=== PATIENT | female | born 1960 | race Caucasian/White ===

== ENCOUNTER → 2020-03-05 13:45 | Outpatient (BNVA) | payer OTHER, SELFPAY | PROVIDERS: Visit Provider Obstetrics & Gynecology | DX: D25.9 Leiomyoma of uterus, unspecified (principal) | CPT/HCPCS: 76830 ==

== ENCOUNTER 2020-03-29 10:48 | Outpatient (CLI) | payer OTHER, SELFPAY ==
--- NOTE | 2020-03-29 11:00 | MM_ITS ---
WS: [id number] BILATERAL DIGITAL SCREENING MAMMOGRAPHY WITH CAD CLINICAL INFORMATION: Z12.39 - Encounter for other screening for malignant neoplasm of breast HISTORY: Screening mammogram. No current complaints. COMPARISON: February 02, 2019 TECHNIQUE: Bilateral CC and MLO views. FINDINGS: Scattered fibroglandular densities bilaterally. 5 mm ovoid asymmetric density mid depth right breast best seen on the MLO view. Recommend spot compression views and ultrasound for further evaluation. Left breast is unremarkable. MM/[place] [id number] IMPRESSION: BI-RADS: 0-Incomplete: Need additional imaging evaluation FOLLOW UP: Need Additional Imaging Recommend right breast diagnostic mammography with spot compression views and u ltrasound for further evaluation.
== END 2020-03-29 10:49 | disposition home or self-care (01) ==
LOC: RADSHAW 10:50
PROVIDERS: Visit Provider Obstetrics & Gynecology
DX: Z12.31 Encounter for screening mammogram for malignant neoplasm of breast (principal); N64.89 Other specified disorders of breast
CPT/HCPCS: 77067

== ENCOUNTER → 2020-04-27 15:06 | Outpatient (BNVA) | payer OTHER, SELFPAY | PROVIDERS: Visit Provider Obstetrics & Gynecology | DX: D25.9 Leiomyoma of uterus, unspecified (principal) | CPT/HCPCS: 76830 ==

== ENCOUNTER 2020-05-07 11:24 | Outpatient (CLI) | payer OTHER, SELFPAY ==
--- NOTE | 2020-05-07 12:00 | MM_ITS ---
WS: [id number] RIGHT DIGITAL MAMMOGRAPHY WITH CAD CLINICAL INFORMATION: R92.8 - Other abnormal and inconclusive findings on diagnostic imaging of breas t COMPARISON: March 29, 2020 TECHNIQUE: 2 views of the right breast were obtained. FINDINGS: Scattered fibroglandular densities of the right breast. Stable 5 mm ovoid density mid depth right zoila ast is unchanged. Ultrasound is pending. ULTRASOUND BREAST RIGHT TECHNIQUE: Ultrasound right breast focused area of concern. CLINICAL INFORMATION: R92.8 - Other abnormal and inconclusive findings on diagnostic imaging of breas t COMPARISON: None. FINDINGS: Ultrasound right breast benign o'clock position 2 cm from the nipple. Tiny incidental cyst measuring 2 mm benign o'clock position. A few dilated ducts extending to the nipple. No suspicious lesions. No lesions to target for biopsy. MM/[place] [id number] IMPRESSION: BI-RADS: 2-Benign FOLLOW UP: 1 Year Follow-up Recommend return to annual screening mammography.
--- NOTE | 2020-05-07 12:45 | US_ITS ---
WS: [id number] RIGHT DIGITAL MAMMOGRAPHY WITH CAD CLINICAL INFORMATION: R92.8 - Other abnormal and inconclusive findings on diagnostic imaging of breas t COMPARISON: March 29, 2020 TECHNIQUE: 2 views of the right breast were obtained. FINDINGS: Scattered fibroglandular densities of the right breast. Stable 5 mm ovoid density mid depth right zoila ast is unchanged. Ultrasound is pending. ULTRASOUND BREAST RIGHT TECHNIQUE: Ultrasound right breast focused area of concern. CLINICAL INFORMATION: R92.8 - Other abnormal and inconclusive findings on diagnostic imaging of breas t COMPARISON: None. FINDINGS: Ultrasound right breast benign o'clock position 2 cm from the nipple. Tiny incidental cyst measuring 2 mm benign o'clock position. A few dilated ducts extending to the nipple. No suspicious lesions. No lesions to target for biopsy. US/US breast RT limited* [id number] IMPRESSION: BI-RADS: 2-Benign FOLLOW UP: 1 Year Follow-up Recommend return to annual screening mammography.
== END 2020-05-07 11:25 | disposition home or self-care (01) ==
PROVIDERS: Visit Provider Obstetrics & Gynecology
DX: R92.8 Other abnormal and inconclusive findings on diagnostic imaging of breast (principal)
CPT/HCPCS: 76642; 77065

== ENCOUNTER → 2020-05-18 14:12 | Outpatient (BNVA) | payer OTHER, SELFPAY | PROVIDERS: Visit Provider Obstetrics & Gynecology | DX: N84.0 Polyp of corpus uteri (principal); N93.9 Abnormal uterine and vaginal bleeding, unspecified | CPT/HCPCS: 87635 ==

== ENCOUNTER 2020-05-24 05:53 | Day surgery (SDC) | payer OTHER, SELFPAY ==
[2020-05-14 08:46] VITALS: BMI 23.3
--- NOTE | 2020-05-14 08:58 | ANES.PREANE2 ---
Pre-Anesthetic Assessment Pre-Anesthetic Assessment: Height/Weight: Height 1.57 m Weight 58.06 kg Preop Diagnosis: Polyps Proposed Procedure: Operation Date: 05/24/20 07:00 Proposed Procedures p Hysteroscopy with polypectomy 48951 17702 n84.0 n93.9 06397 z12.11(Not Applicable) - Johnson Robles MD s Dilation And Curettage (D&C)(Not Applicable) - Johnson Robles MD s Colonoscopy(Not Applicable) - Devan Logan MD Familial anesthetic complications: None Social: Social History: No alcohol and No tobacco Exam: Pre-Anes Outpt Exam: alert, oriented x 3, clear to auscultation bilaterally and regular rate & rhythm Airway: Cervical ROM: WNL MP: 2 Dentition: Other (missing) Anesthetic Plan: ASA status: 1 Anesthesia: MAC Risk of > 500 ml blood loss (7ml/kg in children): No PFSH Anesthesia PFSH: Medical History No pertinent past medical history Denies diabetes, asthma, hypertension, seizures, DVT/PE PCP: None Uterovaginal prolapse, incomplete 01/07/2017----grade 2 cystocele, grade 2 uterine descent, grade 1 rectocele 01/06/2018- grade 2 cystocele, grade 2 uterine descent, grade 1 rectocele on Valsalva-patient asymptomatic-no intervention at this time -01/07/2019-, 02/13/2020----grade 2 cystocele, grade 2 uterine descent, grade 1 rectocele on Valsalva-stable Surgical History History of hysteroscopy with polypectomy and D & C--Procedure performed by Dr. Rodríguez at [facility] on 04/02/2017 as patient had a cervical polyp. At time of hysteroscopy and endometrial polyp was found and removed pathology was benign endometrial polyp. Curettage showed proliferative endometrium that was perimenopausal. No cancer no precancer. History of mandibular surgery age 28 ----has an underbite and as a result had her jaw broken and reset. Chu Peterson [place], [place] Hx of tubal ligation Done at age 35 Family History Mother Hypertension Breast cancer diagnosed in her late 70s Son Leukemia Sister Leukemia Grandmother Colon cancer maternal, diagnosed in her 60s Grandfather Colon cancer maternal, diagnosed in his 60s Father Stroke Denies family history of Ovarian cancer Diabetes Heart disease Hyperlipidemia Uterine cancer Thyroid condition Female Reproductive History: Date of last menstrual period: 05/18/19 Data Anesthesia Cardiac Studies: No Data to Display
[2020-05-24] MEDS: sodium chloride 0.9% 1,000 ML 30 ML IV (06:15)
--- NOTE | 2020-05-24 06:15 | P.HP_ITS ---
Same Day Surgery H&P Indication for Procedure/HPI DATE OF PROCEDURE: May 24, 2020 CHIEF COMPLAINT/INDICATIONFOR SURGICAL PROCEDURE: Screening colonoscopy PREOP DIAGNOSIS: Screening colonoscopy PLANNED PROCEDRUE: Operation Date: 05/24/20 07:00 Proposed Procedures p Hysteroscopy with polypectomy 91746 00786 n84.0 n93.9 22541 z12.11(Not Applicable) - Johnson Robles MD s Dilation And Curettage (D&C)(Not Applicable) - Johnson Robles MD s Colonoscopy(Not Applicable) - Devan Logan MD This is a pleasant 59 years old female patient is referred to my practice for screening colonoscopy as the patient never had one before. Patient is known to me from previous clinical encounter few years ago. Patient denies any bleeding per rectum or history of colon cancer. She is coming today for concomitant procedure as she does have history of endometrial polyp and she will be undergoing a hysteroscopy per ROS All systems have been reviewed negative except as per the above or per problem list Medications/Allergies* Home Medications Medication Instructions Recorded Confirmed Type multivitamin 1 tab PO DAILY 03/01/19 05/14/20 History ascorbate calcium (vitamin C) 500 500 mg PO DAILY 02/13/20 05/14/20 History mg tablet cholecalciferol (vitamin D3) 25 25 mcg PO DAILY 02/13/20 05/14/20 History mcg (1,000 unit) capsule Allergies/Adverse Reactions Allergy/AdvReac Type Severity Reaction Status Date / Time No Known Allergies Allergy Verified 05/24/20 06:16 Pertinent History/Comorbid Conditions* Medical History (Updated 04/09/20 @ 21:12 by Johnson Robles MD) No pertinent past medical history Denies diabetes, asthma, hypertension, seizures, DVT/PE PCP: None Uterovaginal prolapse, incomplete 01/07/2017----grade 2 cystocele, grade 2 uterine descent, grade 1 rectocele 01/06/2018- grade 2 cystocele, grade 2 uterine descent, grade 1 rectocele on Valsalva-patient asymptomatic-no intervention at this time -01/07/2019-, 02/13/2020----grade 2 cystocele, grade 2 uterine descent, grade 1 rectocele on Valsalva-stable Surgical History (Updated 02/14/20 @ 08:26 by Johnson Robles MD) History of hysteroscopy with polypectomy and D & C--Pro[place] performed [place] Dr. Rodríguez [place] [facility] [place] as patient had a cervical polyp. At time of hysteroscopy and endometrial polyp was found and removed pathology was benign endometrial polyp. Curettage showed proliferative endometrium that was perimenopausal. No cancer no precancer. History of mandibular surgery age 28 ----has an underbite and as a result had her jaw broken and reset. Chu Peterson, [place], [place] Hx of tubal ligation Done at age 35 Family History (Updated 02/13/20 @ 11:00 by Yenni Anne RN) Colon cancer Grandmother maternal, diagnosed in her 60s Grandfather maternal, diagnosed in his 60s Leukemia Son Sister Breast cancer Mother diagnosed in her late 70s Hypertension Mother Stroke Father Denies family history of Ovarian cancer Diabetes Heart disease Hyperlipidemia Uterine cancer Thyroid condition Pertinent Exam Findings alert, oriented x 3, clear to auscultation bilaterally, regular rate & rhythm and procedure specific exam findings (Abdominal examination nontender nondistended soft) Recommendations Surgery/Procedure today (Colonoscopy with possible biopsy and possible polypectomy) Other Plans: Plan of care; After thorough history and physical examination and reviewing the chart, plan to perform screening colonoscopy. I discussed with the patient in details the risks,benefits,alternatives and indications.The risk of aspiration, bleeding, soft tissue injury, perforation of the colon and other potential concomitant complications were explained to the patient in details,also the potential need for Laproscoy/Laparotomy to repair any related complications including but not limited to colectomy and or Closotomy.The patient understood this well and did agree to proceed. Rationale was carefully and clearly discussed with the patient.Appropriate informed consent have been reviewed and signed All questions have been answered and all concerns have been addressed to patient's satisfaction. Verbal and written Instructions were given to the patient for colonoscopy prep Coding Level of Care Code Acute Chronic Care Nurse for Rainer Martin
[2020-05-24 06:25] VITALS: BP 151/87; PULSE 89; RESP 18; TEMP 36.8; O2SAT 98
--- NOTE | 2020-05-24 06:44 | P.HPUD_ITS ---
Surgery/Procedure H&P Update DATE OF PROCEDURE: May 24, 2020 DATE H&P PERFORMED: 04/30/20 H&P UPDATE INFORMATION: I have reviewed H&P completed within last 30 days, I have examined patient prior to procedure, No changes to prior documentation and H&P is in [facility] EMR on date indicated PREOP DIAGNOSIS: endometrial polyp PLANNED PROCEDURE: Operation Date: 05/24/20 07:00 Proposed Procedures p Hysteroscopy with polypectomy 59350 58621 n84.0 n93.9 60484 z12.11(Not Applicable) - Johnson Robles MD s Dilation And Curettage (D&C)(Not Applicable) - Johnson Robles MD
[2020-05-24 06:46] LABS: Basophils % 0.6 %; Eosinophils # 0.1 10^3/uL (0.0-0.8); Eosinophils % 1.5 %; Hematocrit 50.8 % (37.0-47.0); Hemoglobin 16.4 g/dL (11.5-15.3); Lymphocytes # 1.3 10^3/uL (0.8-4.8); Lymphocytes % 20.1 %; Mean Corpuscular HGB Conc 32.3 g/dL (30.0-36.0); Mean Corpuscular Hemoglobin 30.3 pg (28.0-34.0); Mean Corpuscular Volume 93.7 fL (81-99); Mean Platelet Volume 12.3 fL (7.4-10.4); Monocytes # 0.5 10^3/uL (0.2-0.9); Monocytes % 6.9 %; Neutrophils # 4.71 10^3/uL (1.8-7.7); Neutrophils % 70.6 %; Nucleated Red Blood Cells % 0 %; Platelet Count 188 10^3/cmm (130-400); Red Blood Count 5.42 10^6/uL (4.1-5.3); Red Cell Distribution Width 12.5 % (12.1-15.1); White Blood Count 6.7 10^3/uL (4.0-10.0)
--- NOTE | 2020-05-24 06:59 | ANES.PAUD2 ---
Pre-Anesthetic Update Pre-Anesthetic Assessment: Date of Surgery/Procedure: 05/24/20 Preop Diagnosis: endometrial polyp Proposed Procedure: Operation Date: 05/24/20 07:00 Proposed Procedures p Hysteroscopy with polypectomy 89341 47470 n84.0 n93.9 82061 z12.11(Not Applicable) - Johnson Robles MD s Dilation And Curettage (D&C)(Not Applicable) - Johnson Robles MD s Colonoscopy(Not Applicable) - Devan Logan MD Any changes to Pre-Anesthetic Assessment?: No Last Intake: Intake Last Liquid Date 05/23/20 Last Liquid Time 19:00 Last Solid Date 05/21/20 Last Solid Time 18:00 Labs Last 48hrs: Laboratory Results - last 48 hr 05/24/20 06:18 WBC 6.7 RBC 5.42 H Hgb 16.4 H Hct 50.8 H MCV 93.7 MCH 30.3 MCHC 32.3 RDW 12.5 Plt Count 188 MPV 12.3 H Neut % (Auto) 70.6 Lymph % (Auto) 20.1 [place] % (Auto) 6.9 Eos % (Auto) 1.5 Baso % (Auto) 0.6 Neut # (Auto) 4.71 Lymph # (Auto) 1.3 [place] # (Auto) 0.5 Eos # (Auto) 0.1 Baso # (Auto) 0.0 Nucleated RBC % (a uto) 0 Nucleated RBCs # 0.0 Vitals: Temperature 98.3 F 05/24/20 06:25 Temperature Source Temporal Artery S can 05/24/20 06:25 Pulse Rate 89 05/24/20 06:25 Pulse Rhythm 05/24/20 06:25 Pulse Strength 3+ Normal 05/24/20 06:25 Respiratory Rate 18 05/24/20 06:25 Blood Pressure 151/87 05/24/20 06:25 Blood Pressure Tata n 108 05/24/20 06:25 Pulse Oximetry 98 05/24/20 06:25 Oxygen Delivery Me thod 05/24/20 06:25 Exam: Pre-Anes Outpt Exam: alert, oriented x 3, clear to auscultation bilaterally and regular rate & rhythm Cardiac Studies: No Data to Display
[2020-05-24 07:00] LABS: OR HCG Qualitative Urine Negative (Negative)
--- NOTE | 2020-05-24 07:32 | P.OP_ITS ---
Operative Report Date of procedure: May 24, 2020 OPERATIVE REPORT Date of surgery:05/24/2020 Date of dictation: 05/24/2020 Preoperative diagnosis: 59-year-old with abnormal uterine bleeding, endometrial polyp Postoperative diagnosis/findings: 8-week size midposition uterus, grade 1-2 uterine prolapse, minimal rectocele and grade 1 cystocele, endocervical canal appeared normal, endometrial cavity showed polyps near the fundus Procedure done: Hysteroscopy, polypectomy, D&C. Specimens removed/disposition of specimens: Endometrial curettings and polyp sent together to pathology Surgeon: Dr. Johnson Rodríguez fast food assistant restaurant manager: Gabrielle Anesthesia: MAC Estimated blood loss: Less than 25 ml Intravenous fluids: 500 mL of clear urine at the end of procedure Urine output: 20 mL of clear urine at the start of procedure via red rubber catheter Medications: As per anesthesia records Complications: None, patient was left for Dr. Logan to perform his part of the surgery-colonoscopy. PROCEDURE: After consent was obtained patient was taken to the operating room where she is placed under laryngeal mask anesthesia without any difficulty. She was placed supine on the table in lithotomy position. Care was taken to ensure that her legs were well positioned to avoid pressure points. She was then prepped and draped in the usual sterile fashion. Exam under anesthesia was done at this time which showed findings noted above. The weighted speculum and lateral vaginal wall retractors were placed in the vagina and the cervix was visualized. The cervix appeared normal. The cervix was dilated to a 15 Erickson dilator. This allowed placement of a 3 mm hysteroscope into the uterine cavity without any difficulty. Once the hysteroscope was placed in the uterine cavity, the endocervical canal was visualized and appeared normal .the uterine cavity was visualized and endometrial polyps are noted as discussed above. Graspers were placed through the hysteroscope and polyp was removed-these were all subcentimeter polyps. The hysteroscope was withdrawn and sharp curettage was performed. Polyp and endometrial curettings were sent together to pathology. Hysteroscope was replaced and polyps were noted to be removed-bilateral ostia were visualized and normal. No active bleeding was noted from the cervix. Tenaculum was removed and hemostasis was noted at site of tenaculum placement. Good hemostasis was achieved. All instruments were removed from the vagina. Patient was cleaned well and anesthesia was reversed without any difficulty. She was taken to the recovery in a stable condition. FOLLOW UP: Follow-up in 2 weeks and 6 weeks with surgeon MEDICATION ON DISCHARGE: Colace 100 mg by mouth every 12 hours when necessary constipation, 30 tablets, no refills Ibuprofen 800 mg by mouth every 8 hours when necessary pain, 60 tablets, no refills. Continue other home medication DISPOSITION: Home in a stable condition This documentation was created by [employer] electro mechanical designer software (known for inherent electro mechanical designer error). Every effort was made to assure accuracy of electro mechanical designer. Any obvious errors or omissions should be clarified with the author of the document. Pre-op Diagnosis: endometrial polyp
--- NOTE | 2020-05-24 07:59 | P.OP_ITS ---
Operative Report Date of procedure: May 24, 2020 Pre-op Diagnosis: Screening colonoscopy Post-op diagnosis: same Post-op Findings: Right-sided colon polyp Procedure Done: Colonoscopy with cold snare polypectomy Implants: Endo resolution clip x1 right side of the colon Specimens removed/disposition: Not retrieved Surgeon: Devan Logan Hunter Trapper: GI surgical Linda Circulating nurse Alsisa Galeano Anesthesia: MAC (slitter creaser slotter helper Ross) Estimated blood loss (mL): 1 Condition: stable Disposition: same day Brief History: This is a pleasant 59 years old female patient referred to my practice for screening colonoscopy. Full H&P and informed consent per chart Procedure: Patient was already in the OR as Dr. Rodríguez just finished hysteroscopy with polypectomy please see separate dictation. Timeout was done already in the presence of prior of both procedures and both attendings were present. Repositioning of the patient in the left lateral position was done and all pressure points were padded and patient was secured to the bed following that a Digital rectal examination was done which was normal, the colonoscope was then introduced via the anus under direct visualization, all the way to the proximal to the cecum, a polyp was appreciated at the right side of the colon and a medium size cold snare was used followed by resolution clip application, the polyp wasnt retrieved at the end of the procedure, the scope was then retrieved back, gas was deflated on the way out anal canal examination was done at the end showing showed no evidence of internal hemorrhoids or external, time to retrieve the scope from the cecum to the anus exceeded 6 minutes. Patient tolerated the procedure well Transferred to the recovery area in stable condition I was present for the whole entire procedure of the colonoscopy
[2020-05-24 08:05] VITALS: BP 145/96; PULSE 88; RESP 19; TEMP 36.8; O2SAT 98
[2020-05-24 08:10] VITALS: BP 147/81; PULSE 84; RESP 19; O2SAT 99
[2020-05-24 08:15] VITALS: BP 147/81; PULSE 79; RESP 18; TEMP 36.8; O2SAT 99
[2020-05-24 08:20] VITALS: BP 147/91; PULSE 80; RESP 18; O2SAT 100
[2020-05-24 08:50] VITALS: BP 149/92; PULSE 67; RESP 18; O2SAT 100
--- NOTE | 2020-05-24 14:47 | ANE.PACU2 ---
Inpatient post-anesthesia follow up: Airway intact: Yes Vital signs: Temperature 98.3 F Pulse Rate 67 Respiratory Rate 18 Blood Pressure 149/92 Pulse Oximetry 100 Oxygen Delivery Me thod Room Air Oxygen Flow Rate Fraction of Inspir ed Oxygen Hydration adequate: Yes Nausea and vomiting: No Pain level: 2 Mental status: Baseline
== END 2020-05-24 09:03 | disposition home or self-care (01) ==
PROVIDERS: Anesthesiology; Surgery; Visit Provider Obstetrics & Gynecology
PROC: 0UJD8ZZ Inspection of Uterus and Cervix, Via Natural or Artificial Opening Endoscopic (ICD-10-PCS; CPT 58555; principal; 2020-05-24 07:00)
PROC: (CPT 58120; 2020-05-24 07:00)
PROC: 0DJD8ZZ Inspection of Lower Intestinal Tract, Via Natural or Artificial Opening Endoscopic (ICD-10-PCS; CPT 45378; 2020-05-24 07:00)
DX: Z12.11 Encounter for screening for malignant neoplasm of colon (principal); N93.9 Abnormal uterine and vaginal bleeding, unspecified; N84.0 Polyp of corpus uteri
CPT/HCPCS: 45385; 58558; 36415; 81025; 84703; 85025; 86850; 86900; 88305; J2704; J3010; J7030

== ENCOUNTER → 2020-06-18 08:25 | Outpatient (BNVA) | payer OTHER, SELFPAY | PROVIDERS: Visit Provider Obstetrics & Gynecology | DX: Z00.00 Encounter for general adult medical examination without abnormal findings (principal); Z13.6 Encounter for screening for cardiovascular disorders | CPT/HCPCS: 80053; 80061; 83036 ==

== ENCOUNTER → 2020-11-26 09:03 | Outpatient (BNVA) | payer OTHER, SELFPAY | PROVIDERS: Visit Provider Obstetrics & Gynecology | DX: D25.9 Leiomyoma of uterus, unspecified (principal); N85.8 Other specified noninflammatory disorders of uterus | CPT/HCPCS: 76830 ==

== ENCOUNTER 2021-09-10 15:28 | Outpatient (CLI) | payer OTHER, SELFPAY ==
--- NOTE | 2021-09-10 15:45 | US_ITS ---
WS: [id number] TRANSABDOMINAL PELVIC AND TRANSVAGINAL PELVIC ULTRASOUND HISTORY: N83.291 - Other ovarian cyst, right side COMPARISON: 11/26/2020 Uterus: 7.4 cm x 5.1 cm x 5.0 cm. Difficult evaluation of the uterus. Very heterogeneous appearance o f the uterus. There is a fibroid in the posterior uterus measuring 2.4 x 2.3 x 3.2 cm which was prese nt on the prior study also. Measurements are slightly different due to difference in imaging techniqu e. This intramural fibroid is causing very mild displacement and bowing of the endometrium anteriorly . There is probably an additional fibroid in the posterior myometrium also. Endometrium: 0.7 cm. Slightly bowed to the posterior uterine fibroid. Not visualized throughout its e ntirety. Right ovary: 3.0 cm x 2.6 cm x 2.2 cm. Normal size ovary and vascularity. RIGHT ovary is of decreased echogenicity and very round. There is a hypoechoic area within the ovary measuring 3.0 x 2.0 x 2.3 c m. This was also noted on the prior examination. The small collection adjacent to the RIGHT ovary is reidentified. This may be related to the cervix and a small nabothian cyst. This collection measures 1.3 x 1.0 x 1.2 cm. Similar to the prior study. Left ovary: 1.6 cm x 1.6 cm x 0.9 cm. Small caliber and difficult to see. No free fluid. US/US pelvic with transvaginal IMPRESSION: 1. Quality of this examination is limited. Very limited evaluation of the uter us, endometrium and RIGHT ovary. 2. Homogeneous hypoechoic nodule within the RIGHT ovary measuring 3.0 x 2.0 x 2.3 cm. This may be small hemorrhagic cyst or endometrioma. This was also noted on prior examinations without significant increase in size. Described on 2020 without significant increase in size. 3. Endometrium is measuring 0.7 cm which is mildly prominent for postmenopausa l patient. Consider follow-up transvaginal imaging in 3-4 months. 4. Fibroid uterus.
== END 2021-09-10 15:29 | disposition home or self-care (01) ==
LOC: RAD 15:29
PROVIDERS: Visit Provider Obstetrics & Gynecology
DX: N83.291 Other ovarian cyst, right side (principal); D25.9 Leiomyoma of uterus, unspecified
CPT/HCPCS: 76830; 76856

== ENCOUNTER → 2022-01-10 15:55 | Outpatient (BNVA) | payer OTHER, SELFPAY | PROVIDERS: Visit Provider Obstetrics & Gynecology | DX: R93.89 Abnormal findings on diagnostic imaging of other specified body structures (principal) | CPT/HCPCS: 76830 ==

== ENCOUNTER → 2022-01-22 11:20 | Outpatient (BNVA) | payer OTHER, SELFPAY | PROVIDERS: Visit Provider Obstetrics & Gynecology | DX: N83.291 Other ovarian cyst, right side (principal) | CPT/HCPCS: 81500 ==

== ENCOUNTER 2022-03-04 10:00 | Day surgery (SDC) | payer OTHER, SELFPAY ==
--- NOTE | 2022-02-27 14:17 | P.ANESASSM_ITS ---
Pre-Anesthetic Assessment Height/Weight: Height 1.57 m Preop Diagnosis: thickened endometrium, uterine prolapse Operation Date: 03/04/22 11:30 Proposed Procedures p Hysterosocpy, dilation and curettage with Myosure 94653, 86329,01865 R93.89,D25.9(Not Applicable) - Nisha Ruff MD s Dilation And Curettage (D&C)(Not Applicable) - Nisha Ruff MD Familial anesthetic complications: none Was Beta Araceli taken within 24 hours: N/A Was Clonidine taken within 24 hours: N/A Social No alcohol and No tobacco Exam alert, oriented x 3, clear to auscultation bilaterally and regular rate & rhythm Airway Submandibular: within normal limits Cervical ROM: within normal limits Mallampati: Class II Dentition: full History/ROS No significant history except as noted Anesthetic Plan ASA status: 1 Anesthesia: General Medications/Allergies Home Medications Medication Instructions Recorded Confirmed Last Taken Type multivitamin 1 tab PO DAILY 03/01/19 02/27/22 05/14/20 History cholecalciferol (vitamin D3) 25 25 mcg PO DAILY 02/13/20 02/27/22 05/14/20 Histo ry mcg (1,000 unit) capsule zinc gluconate 50 mg tablet 50 mg PO DAILY 11/26/20 02/27/22 Unknown History Allergies Allergy/AdvReac Type Severity Reaction Status Date / Time No Known Allergies Allergy Verified 02/27/22 09:12 [facility] Anesthesia Medical History No pertinent past medical history Denies diabetes, asthma, hypertension, seizures, DVT/PE PCP: None Uterovaginal prolapse, incomplete 01/07/2017----grade 2 cystocele, grade 2 uterine descent, grade 1 rectocele 01/06/2018- grade 2 cystocele, grade 2 uterine descent, grade 1 rectocele on Valsalva-patient asymptomatic-no intervention at this time -01/07/2019-, 02/13/2020----grade 2 cystocele, grade 2 uterine descent, grade 1 rectocele on Valsalva-stable Surgical History History of hysteroscopy X 2 04/02/2017 ---with polypectomy and D & C--Procedure performed by Dr. Rodríguez [place] [facility] [place]02/2017 as patient had a cervical polyp. At time of hysteroscopy and endometrial polyp was found and removed pathology was benign endometrial polyp. Curettage showed proliferative endometrium that was perimenopausal. No cancer no precancer. 05/24/2020----> hysteroscopy with polypectomy and D&C performed by Dr. Rodríguez at [facility]. On exam 8 weeks midposition uterus with grade 1-2 uterine prolapse and grade 1 cystocele and minimal rectocele. Endocervix normal endometrial cavity showed small polyps near the fundus which were removed. Pathology showed fragments of benign endometrial glands consistent with polyps without malignancy or atypia. History of mandibular surgery age 28 ----has an underbite and as a result had her jaw broken and reset. Chu Peterson, [place], [place] Hx of tubal ligation Done at age 35 Family History Mother Hypertension Breast cancer diagnosed in her late 70s Son Leukemia Sister Leukemia Grandmother Colon cancer maternal, diagnosed in her 60s Grandfather Colon cancer maternal, diagnosed in his 60s Father Stroke Denies family history of Ovarian cancer Diabetes Heart disease Hyperlipidemia Uterine cancer Thyroid condition Female Reproductive History Date of last menstrual period: 02/27/22 Data Anesthesia Cardiac Studies: No Data to Display
[2022-03-03 11:22] VITALS: BMI 24.7
[2022-03-04] VITALS (13 sets, daily range): BP systolic 138–175; BP diastolic 87–108; PULSE 72–87; RESP 14–18; TEMP 36.2–36.8; O2SAT 97–100
[2022-03-04] MEDS: sodium chloride 0.9% 1,000 ML 30 ML IV (10:49)
[2022-03-04 10:53] LABS: OR HCG Qualitative Urine Negative (Negative)
--- NOTE | 2022-03-04 11:05 | W.PM.OPSUD ---
Surgery/Procedure H&P Update DATE OF PROCEDURE: March 04, 2022 DATE H&P PERFORMED: 02/27/22 H&P UPDATE INFORMATION: I have reviewed H&P completed within last 30 days, I have examined patient prior to procedure and No changes to prior documentation PREOP DIAGNOSIS: thickened endometrium, PLANNED PROCEDURE: Operation Date: 03/04/22 11:30 Proposed Procedures p Hysterosocpy, dilation and curettage with Myosure 87123, [id number] R93.89,D25.9(Not Applicable) - Nisha Ruff MD s Dilation And Curettage (D&C)(Not Applicable) - Nisha Ruff MD Related Problem List Diagnoses (1) Thickened endometrium:
--- NOTE | 2022-03-04 11:47 | P.ANESASSM_ITS ---
Pre-Anesthetic Assessment Height/Weight: Height 1.57 m Weight 61.235 kg Temp Pulse Resp BP Pulse Ox O2 Del Method 98.2 F 75 16 163/102 98 03/04/22 10:21 03/04/22 10:21 03/04/22 10:21 03/04/22 10:21 03/04/22 10:21 03/04/22 10:21 Preop Diagnosis: thickened endometrium, Operation Date: 03/04/22 11:30 Proposed Procedures p Hysterosocpy, dilation and curettage with Myosure [id number], [id number] R93.89,D25.9(Not Applicable) - Nisha Ruff MD s Dilation And Curettage (D&C)(Not Applicable) - Nisha Ruff MD Last intake: Intake Last Liquid Date 03/03/22 Last Liquid Time 23:30 Last Solid Date 03/03/22 Last Solid Time 17:00 Last Intake: 18:00 Exam alert, oriented x 3, clear to auscultation bilaterally and regular rate & rhythm Airway Submandibular: within normal limits Cervical ROM: within normal limits Mallampati: Class II History/ROS No significant history except as noted Pulmonary None reported CV/HEM None reported Hepatic None reported GI None reported Metabolic None reported Musc/skel None reported Neuropsych None reported Anesthetic Plan ASA status: 1 Anesthesia: General Risk of > 500 ml blood loss (7ml/kg in children): No Medications/Allergies Home Medications Medication Instructions Recorded Confirmed Last Taken Type multivitamin 1 tab PO DAILY 03/01/19 03/03/22 03/02/22 History cholecalciferol (vitamin D3) 25 25 mcg PO DAILY 02/13/20 03/03/22 03/02/22 History mcg (1,000 unit) capsule zinc gluconate 50 mg tablet 50 mg PO DAILY 11/26/20 03/03/22 03/02/22 History Allergies Allergy/AdvReac Type Severity Reaction Status Date / Time No Known Allergies Allergy Verified 02/27/22 09:12 Current Medications Generic Name Dose Route Start Last Admin Trade Name Freq PRN Reason Stop Dose Admin Sodium Chloride 1,000 mls @ 30 mls/hr 03/04/22 10:15 03/04/22 10:49 Sodium Chloride 0.9% IV 03/05/22 10:14 30 mls/hr .Q24H ZEESHAN Administration PFSH Anesthesia Medical History No pertinent past medical history Denies diabetes, asthma, hypertension, seizures, DVT/PE PCP: None Uterovaginal prolapse, incomplete 01/07/2017----grade 2 cystocele, grade 2 uterine descent, grade 1 rectocele 01/06/2018- grade 2 cystocele, grade 2 uterine descent, grade 1 rectocele on Valsalva-patient asymptomatic-no intervention at this time -01/07/2019-, 02/13/2020----grade 2 cystocele, grade 2 uterine descent, grade 1 rectocele on Valsalva-stable Surgical History History of hysteroscopy X 2 04/02/2017 ---with polypectomy and D & C--Procedure performed by Dr. Rodríguez at [facility] [place]/02/2017 as patient had a cervical polyp. At time of hysteroscopy and endometrial polyp was found and removed pathology was benign endometrial polyp. Curettage showed proliferative endometrium that was perimenopausal. No cancer no precancer. 05/24/2020----> hysteroscopy with polypectomy and D&C performed by Dr. Rodríguez at [facility] [place]. On exam 8 weeks midposition uterus with grade 1-2 uterine prolapse and grade 1 cystocele and minimal rectocele. Endocervix normal endometrial cavity showed small polyps near the fundus which were removed. Pathology showed fragments of benign endometrial glands consistent with polyps without malignancy or atypia. History of mandibular surgery age 28 ----has an underbite and as a result had [facility] [place] [facility]x of tubal ligation Done at age 35 Family History Mother Hypertension Breast cancer diagnosed in her late 70s Son Leukemia Sister Leukemia Grandmother Colon cancer maternal, diagnosed in her 60s Grandfather Colon cancer maternal, diagnosed in his 60s Father Stroke Denies family history of Ovarian cancer Diabetes Heart disease Hyperlipidemia Uterine cancer Thyroid condition Female Reproductive History Date of last menstrual period: 02/27/22 Data Anesthesia Cardiac Studies: No Data to Display
--- NOTE | 2022-03-04 12:43 | P.OP_ITS ---
Operative Report Date of procedure: March 04, 2022 Pre-op diagnosis: Preop Diagnosis thickened endometrium, Post-op diagnosis: same Post-op findings: endometrial polyps Procedure done: hysteroscopy, dilation and curettage with myosure Specimens removed/disposition: endometrial curettings to pathology Surgeon: Nisha Ruff Anesthesia: MAC Estimated blood loss (mL): 25 IV fluids (mL): 500 Complications: none Findings: hysteroscopy deficit 740 ml Condition: stable Disposition: PACU Procedure: The patient was taken to the operating room where monitored anesthesia was administered and to be adequate. She was prepped and draped in the normal sterile fashion in the dorsal lithotomy position in [facility]. A weighted speculum was placed into the vagina and the anterior lip of the cervix grasped with a single-tooth tenaculum. The uterus was sounded to 8 cm. The cervix was dilated to 16 [place]. The hysteroscope was advanced into the endometrial cavity. There was excessive tissue and endometrial polyps visualized. The MyoSure device was activated and the tissue was removed. Pictures were taken pre procedure. There was bleeding after removal of one of the polyps and I could no longer see. The procedure was stopped as I got biopsies from all over the uterus. All instruments were removed. The patient tolerated the procedure well. Sponge lap and needle counts were correct x3. She was taken to the recovery room in stable condition.
--- NOTE | 2022-03-04 12:49 | PM.DCS ---
Discharge Providers Date of Admission: 03/04/22 Date of Discharge: March 04, 2022 Attending Provider at Discharge: Nisha Ruff MD Primary Care Provider: Yenni Rosa DO Diagnoses at Discharge Discharge Diagnosis (1) Thickened endometrium: Status: Acute Reason for Visit Reason for Visit: leiomyoma of uterus, unspecified Hospital Course Hospital Course The patient was admitted for surgery. She did well postoperatively and was ready for discharge. Discharge Data Studies Completed and Pending Pending at discharge Category Date Time Status Pathology: Surgical [PTH] Routine Pth 03/04/22 12:39 Ordered Laboratory Results Urine HCG, Qual Negative (Negative) 03/04/22 10:52 Vitals Last Vital Signs Temp 98.2 F 03/04/22 10:21 Pulse 75 03/04/22 10:21 Resp 16 03/04/22 10:21 BP 163/102 03/04/22 10:21 Pulse Ox 98 03/04/22 10:21 O2 Del Method 03/04/22 10:21 Discharge Plan Discharge Patient Disposition: Home Condition: Stable Prescriptions: Continued cholecalciferol (vitamin D3) 25 mcg (1,000 unit) capsule 25 mcg PO DAILY zinc gluconate 50 mg tablet 50 mg PO DAILY multivitamin Tablet 1 tab PO DAILY Discharge Orders: Discharge Order (Routine); Ordered 03/04/22 Ordered By: Nisha Ruff Discharge Attestations Time Spent in Discharge Care*: less than 30 min Quality Metrics Clinical Quality Measures [ No reported AMI, CVA or VTE this stay] Coding Level of Care Code Acute Chg FW DC note Diagnoses Thickened endometrium R93.89
[2022-03-04] MEDS: labetalol 5 mg/mL SDV 20mL 10 MG IVP (13:07)
--- NOTE | 2022-03-04 14:08 | ANE.PACU2 ---
Inpatient post-anesthesia follow up: Airway intact: Yes Vital signs: Temperature 97.2 F Pulse Rate 87 Respiratory Rate 18 Blood Pressure 156/102 Pulse Oximetry 98 Oxygen Delivery Me thod Room Air Oxygen Flow Rate 6 Fraction of Inspir ed Oxygen Hydration adequate: Yes Nausea and vomiting: No Pain level: 1 Mental status: Baseline
== END 2022-03-04 14:30 | disposition home or self-care (01) ==
PROVIDERS: Anesthesiology; PCP Family Medicine; Visit Provider Obstetrics & Gynecology
PROC: 0UDB8ZZ Extraction of Endometrium, Via Natural or Artificial Opening Endoscopic (ICD-10-PCS; CPT 58558; principal; 2022-03-04 11:20)
PROC: (CPT 58120; 2022-03-04 11:20)
DX: R93.89 Abnormal findings on diagnostic imaging of other specified body structures (principal)
CPT/HCPCS: 58558; 81025; 84703; 88305; J1100; J2250; J2405; J2704; J3010; J3490; J7030

== ENCOUNTER 2022-03-11 11:25 | Observation (INO) | payer OTHER, SELFPAY ==
[2022-02-27 10:50] VITALS: BMI 24.7
[2022-02-27 12:34] LABS: Basophils % 0.3 %; Eosinophils # 0.1 10^3/uL (0.0-0.8); Hematocrit 45.5 % (37.0-47.0); Hemoglobin 14.6 g/dL (11.5-15.3); Lymphocytes # 1.4 10^3/uL (0.8-4.8); Lymphocytes % 22.9 %; Mean Corpuscular HGB Conc 32.1 g/dL (30.0-36.0); Mean Corpuscular Hemoglobin 29.6 pg (28.0-34.0); Mean Corpuscular Volume 92.1 fl (81-99); Mean Platelet Volume 12.8 fL (7.4-10.4); Monocytes # 0.4 10^3/uL (0.2-0.9); Monocytes % 5.9 %; Neutrophils # 4.16 10^3/uL (1.8-7.7); Neutrophils % 69.6 %; Nucleated Red Blood Cells % 0 %; Platelet Count 186 10^3/cmm (130-400); Red Blood Count 4.94 10^6/uL (4.1-5.3)
[2022-02-27 12:52] LABS: Anion Gap 13.7 (5-19); Blood Urea Nitrogen 12 mg/dL (6-20); Calcium 9.1 mg/dL (8.5-10.5); Carbon Dioxide 29 mmol/L (22-29); Chloride 103 mmol/L (98-107); Glomerular Filtration Rate 102.3 mL/min (90-130); Glucose 91 mg/dL (65-115); Osmolality Calculated 293 mOsm/kg (285-295); Potassium 3.7 mmol/L (3.5-5.1); Sodium 142 mmol/L (136-145)
[2022-03-11] VITALS (18 sets, daily range): BP systolic 110–183; BP diastolic 63–87; PULSE 52–79; RESP 14–20; TEMP 36.7–37.4; O2SAT 92–100
[2022-03-11] MEDS: CELEcoxib 200 mg Capsule 400 MG PO (08:38)
[2022-03-11] MEDS: sodium chloride 0.9% 1,000 ML 30 ML IV (08:38)
[2022-03-11] MEDS: acetaminophen 1,000 MG/100 ML PIGGYBACK 400 MG IV (08:38)
[2022-03-11] MEDS: gabapentin 300 mg Capsule PO (08:39)
[2022-03-11] MEDS: scopolamine 1.5 Patch 1 PATCH TRANSDERMA (08:39)
[2022-03-11] MEDS: phenazopyridine 100 mg Tablet 200 MG PO ×3 (08:39→20:57)
--- NOTE | 2022-03-11 08:59 | W.PM.OPSUD ---
Surgery/Procedure H&P Update DATE OF PROCEDURE: March 11, 2022 DATE H&P PERFORMED: 02/27/22 H&P UPDATE INFORMATION: I have reviewed H&P completed within last 30 days, I have examined patient prior to procedure and No changes to prior documentation PREOP DIAGNOSIS: thickened endometrium, PLANNED PROCEDURE: Operation Date: 03/11/22 09:30 Proposed Procedures p Laparoscopic assisted vaginal hysterectomy, bilateral salpingo-oophorectomy 02152 N94.89(Not Applicable) - Nisha Ruff MD s Laparoscopic Salpingo Oophorectomy(Bilateral) - Nisha Ruff MD Related Problem List Diagnoses (1) Complex cyst of right ovary: (2) Fibroid uterus:
[2022-03-11 09:04] LABS: OR HCG Qualitative Urine Negative (Negative)
[2022-03-11] MEDS: ceFAZolin 2,000 MG in sodium chloride 0.9% (plus) 50 ML 100 MG IV ×2 (09:08→17:44)
[2022-03-11] MEDS: vasopressin 20 unit/mL INJ INJECTION (09:50)
--- NOTE | 2022-03-11 10:54 | P.ANESUD_ITS ---
Pre-Anesthetic Update Pre-Anesthetic Assessment: Date of Surgery/Procedure: 03/11/22 Preop Jeny gnosis: thickened endometrium, Proposed Procedure: Operation Date: 03/11/22 09:30 Proposed Procedures p Laparoscopic assisted vaginal hysterectomy, bilateral salpingo-oophorectomy 93909 N94.89(Not Applicable) - Nisha Ruff MD s Laparoscopic Salpingo Oophorectomy(Bilateral) - Nisha Ruff MD Any changes to Pre-Anesthetic Assessment?: No Last Intake: Intake Last Liquid Date 03/10/22 Last Liquid Time 23:30 Last Solid Date 03/10/22 Last Solid Time 18:30 Vitals: Temperature 98.2 F 03/11/22 08:16 Temperature Source Temporal Artery S can 03/11/22 08:16 Pulse Rate 76 03/11/22 08:16 Pulse Rhythm 03/11/22 08:10 Pulse Strength 3+ Normal 03/11/22 08:10 Respiratory Rate 16 03/11/22 08:16 Blood Pressure 183/87 03/11/22 08:16 Blood Pressure Tata n 119 03/11/22 08:16 Pulse Oximetry 98 03/11/22 08:16 Oxygen Delivery Me thod 03/11/22 08:16 Exam: Pre-Anes Outpt Exam: alert, oriented x 3, clear to auscultation bilaterally and regular rate & rhythm Cardiac Studies: No Data to Display
--- NOTE | 2022-03-11 10:58 | SUR.OPER ---
UPDATED FRIEND JESENIA AT 1038 VIA PHONE
--- NOTE | 2022-03-11 11:14 | PM.OP ---
Operative Report Date of procedure: March 11, 2022 Pre-op diagnosis: Preop Diagnosis thickened endometrium, Post-op diagnosis: same Post-op diagnosis: Fibroid uterus, enlarged right ovary Post-op findings: multiple fibroids, mild adhesions to left adnexae, enlarged right ovary Procedure done: LAVH. BSO Specimens removed/disposition: uterus, segments of tubes, ovaries to pathology Surgeon: Nisha Ruff Anesthesia: General Estimated blood loss (mL): 100 IV fluids (mL): 2,000 Urine output (mL): 2 Complications: none Condition: stable Disposition: PACU Procedure: The patient was taken to the operating room where general anesthesia was administered and found to be adequate. She was prepped and draped in the normal sterile fashion in the dorsal lithotomy position in [facility]. A Cisneros catheter was placed. A weighted speculum was placed into the vagina and the anterior lip of the cervix was grasped with a single tooth tenaculum. The Zumi uterine manipulator was placed. The weighted speculum was removed. The gloves were changed and attention was turned to the abdomen. A 5 mm supraumbilical incision was made. Using a 5 mm port with the camera, the port was placed into the abdomen. The abdomen was insufflated. Two low, lateral 5 mm ports were placed on the left and right under direct visualization from the camera. The right tube was grasped and elevated. Using the laparoscopic cautery, the infundibulopelvic ligament was cauterized inferior to the tube and ovary. The tube and ovary were left attached to the uterus. This was performed the same way on the left. There was a small, filmy adhesion from the bowel to the left adnexa. This was taken down with the scissors. The uteroovarian ligaments as well as the round ligaments were ligated. Attention was then turned to the vaginal portion of the procedure. The weighted speculum was placed into the vagina. The zumi manipulator was removed. The single tooth tenaculum was removed and replaced with the darius's tenaculum. 10 mL of dilute Pitressin was injected at the vesicovaginal junction. A circumferential incision was made at the vesicovaginal junction and the vaginal mucosa reflected cephalad. The posterior peritoneum was entered sharply with the Metzenbaum scissors and the long weighted speculum replaced. Using the Leonardo clamps the uterosacral ligaments were clamped cut and suture-ligated. The anterior peritoneum was entered sharply with the metzenbaum scissors. Then sequentially the uterine arteries and cardinal ligaments were clamped cut and suture-ligated. A single-tooth tenaculum was used to deliver the uterus. The remaining segement of the utero-ovarian ligaments were clamped cut and suture-ligated bilaterally and the specimen was removed. There was good hemostasis with only mild bleeding from the cuff. The peritoneum was closed with a pursestring using 2-0 Vicryl. The vaginal cuff was closed with 0 Vicryl in a running locked pattern incorporating the uterosacral ligaments into the lateral aspects of the vaginal cuff. The Cisneros catheter was removed and the cystoscope advanced into the bladder. The patient was given pyridium and bilateral spill was noted. There were no injuries or deficits noted in the bladder. The cystoscope was removed and the Cisneros was replaced. Vaginal packing was placed for good hemostasis. The gloves and gowns were changed and attention was turned to the abdomen. The ports were closed with 2-0 monocryl with skin glue. The patient tolerated the procedure well. Sponge lap and needle counts were correct x3. She was taken to the recovery room in stable condition.
[2022-03-11] MEDS: HYDROcodone-acetaminophen 5-325 mg Tablet PO ×2 (12:42→19:20)
[2022-03-11] MEDS: dextrose 5%-lactated ringers 1,000 ML 125 ML IV ×2 (12:44→20:58)
--- NOTE | 2022-03-11 14:16 | ANE.PACU2 ---
Inpatient post-anesthesia follow up: Airway intact: Yes Vital signs: Temperature 98.1 F Pulse Rate 79 Respiratory Rate 16 Blood Pressure 139/77 Pulse Oximetry 97 Oxygen Delivery Me thod Room Air Oxygen Flow Rate 6 Fraction of Inspir ed Oxygen Hydration adequate: Yes Nausea and vomiting: No Pain level: 3 Mental status: Baseline
[2022-03-11] MEDS: ketorolac 30 mg/mL INJ IVP ×2 (15:06→20:57)
[2022-03-11] MEDS: docusate sodium 100 mg Capsule PO (17:44)
[2022-03-12] MEDS: ceFAZolin 2,000 MG in sodium chloride 0.9% (plus) 50 ML 100 MG IV (01:02)
[2022-03-12] MEDS: ketorolac 30 mg/mL INJ IVP (02:59)
[2022-03-12] MEDS: sodium chloride 0.9% 500 ML 999 ML IV (03:22)
[2022-03-12] MEDS: dextrose 5%-lactated ringers 1,000 ML 125 ML IV (04:45)
[2022-03-12 04:58] VITALS: BP 144/78; PULSE 80; RESP 16; TEMP 36.5
[2022-03-12 05:03] LABS: Hematocrit 36.2 % (37.0-47.0); Hemoglobin 11.5 g/dL (11.5-15.3); Mean Corpuscular HGB Conc 31.8 g/dL (30.0-36.0); Mean Corpuscular Hemoglobin 29.9 pg (28.0-34.0); Mean Platelet Volume 12.1 fL (7.4-10.4); Platelet Count 160 10^3/cmm (130-400); Red Blood Count 3.85 10^6/uL (4.1-5.3); Red Cell Distribution Width 13.4 % (12.1-15.1)
--- NOTE | 2022-03-12 08:30 | PM.DCS ---
Discharge Providers Date of Admission: 03/11/22 11:25 Date of Discharge: March 12, 2022 Attending Provider at Admission: Nisha Ruff MD Attending Provider at Discharge: Nisha Ruff MD Primary Care Provider: Yenni Rosa DO Diagnoses at Discharge Discharge Diagnosis (1) Complex cyst of right ovary: Status: Acute (2) Fibroid uterus: Status: Acute Reason for Visit Reason for Visit: other specified conditions associated with female Hospital Course Hospital Course The patient was admitted for surgery. She did well postoperatively and was ready for discharge on day #1 Physical Exam Narrative: The patient is doing well this morning. No concerns Const: COMMON NORMALS: no acute distress, average body habitus, patient oriented x3, no limitations, healthy appearing, alert and well nourished GENERAL APPEARANCE: cooperative, comfortable, well kempt and well developed ORIENTATION/CONSCIOUSNESS: Yes awake, Yes oriented to person, Yes oriented to place and Yes oriented to time Resp: COMMON NORMALS: normal respiratory effort EFFORT & INSPECTION: Yes able to speak in complete sentences GI: COMMON NORMALS: Soft to palpation and non-tender PALPATION: Yes Soft to palpation Extremity: COMMON NORMALS: no calf tenderness Neuro: COMMON NORMALS: patient oriented x3 SENSORIUM/ORIENTATION: Yes alert, Yes oriented to person, Yes oriented to place and Yes oriented to time Psych: APPEARANCE: Yes well kempt Urinary Catheter Management: Cisneros: Cath Placed During This Visit: yes, but has since been removed by the nurse Reason for Continuing Indwelling Catheter: Decision to DC Catheter Urinary Catheter Date of Insertion: 03/11/22 Urinary Catheter Time of Insertion: 10:24 Date Urinary Catheter Removed: 03/12/22 Time Urinary Catheter Discontinued: 06:20 Discharge Data Studies Completed and Pending Pending at discharge Category Date Time Status Urine Culture Routine Lab 03/11/22 09:41 Received Pathology: Surgical [PTH] Routine Pth 03/11/22 10:42 Received Laboratory Results WBC 13.0 10^3/uL (4.0-10.0) H 03/12/22 04:55 RBC 3.85 10^6/uL (4.1-5.3) L 03/12/22 04:55 Hgb 11.5 g/dL (11.5-15.3) 03/12/22 04:55 Hct 36.2 % (37.0-47.0) L 03/12/22 04:55 MCV 94.0 fl (81-99) 03/12/22 04:55 MCH 29.9 pg (28.0-34.0) 03/12/22 04:55 MCHC 31.8 g/dL (30.0-36.0) 03/12/22 04:55 RDW 13.4 % (12.1-15.1) 03/12/22 04:55 Plt Count 160 10^3/cmm (130-400) 03/12/22 04:55 MPV 12.1 fL (7.4-10.4) H 03/12/22 04:55 Neut % (Auto) 69.6 % 02/27/22 10:45 Lymph % (Auto) 22.9 % 02/27/22 10:45 [place] % (Auto) 5.9 % 02/27/22 10:45 Eos % (Auto) 1.0 % 02/27/22 10:45 Baso % (Auto) 0.3 % 02/27/22 10:45 Neut # (Auto) 4.16 10^3/uL (1.8-7.7) 02/27/22 10:45 Lymph # (Auto) 1.4 10^3/uL (0.8-4.8) 02/27/22 10:45 [place] # (Auto) 0.4 10^3/uL (0.2-0.9) 02/27/22 10:45 Eos # (Auto) 0.1 10^3/uL (0.0-0.8) 02/27/22 10:45 Baso # (Auto) 0.0 10^3/uL (0.0-0.1) 02/27/22 10:45 Nucleated RBC % (auto) 0 % 02/27/22 10:45 Nucleated RBCs # 0.0 /100WBC 02/27/22 10:45 Sodium 142 mmol/L (136-145) 02/27/22 10:45 Potassium 3.7 mmol/L (3.5-5.1) 02/27/22 10:45 Chloride 103 mmol/L (98-107) 02/27/22 10:45 Carbon Dioxide 29 mmol/L (22-29) 02/27/22 10:45 Anion Gap 13.7 (5-19) 02/27/22 10:45 BUN 12 mg/dL (6-20) 02/27/22 10:45 Creatinine 0.6 mg/dL (0.5-0.9) 02/27/22 10:45 GFR Calculation 102.3 mL/min (90-130) 02/27/22 10:45 Glucose 91 mg/dL (65-115) 02/27/22 10:45 Calculated Osmolality 293 mOsm/kg (285-295) 02/27/22 10:45 Calcium 9.1 mg/dL (8.5-10.5) 02/27/22 10:45 Urine HCG, Qual Negative (Negative) 03/11/22 08:52 Blood Type AB Positive 02/27/22 10:45 Rho(D) Type Positive 02/27/22 10:45 Antibody Screen Negative 02/27/22 10:45 Vitals Last Vital Signs Temp 97.7 F 03/12/22 04:58 Pulse 80 03/12/22 04:58 Resp 16 03/12/22 04:58 BP 144/78 03/12/22 04:58 Pulse Ox 98 03/11/22 17:55 O2 Del Method 03/11/22 17:55 O2 Flow Rate 0.5 03/11/22 13:30 Discharge Plan Discharge Patient Disposition: Home Condition: Stable Prescriptions: New ibuprofen 800 mg Tablet 800 mg PO Q8H Qty: 30 0RF hydrocodone-acetaminophen 5-325 mg Tablet 1 tab PO Q4H PRN (Reason: Moderate To Severe Pain) Qty: 30 0RF docusate sodium 100 mg Capsule 100 mg PO BID Qty: 60 0RF Continued cholecalciferol (vitamin D3) 25 mcg (1,000 unit) capsule 25 mcg PO DAILY zinc gluconate 50 mg tablet 50 mg PO DAILY multivitamin Tablet 1 tab PO DAILY Discharge Orders: Discharge Order (Routine); Ordered 03/12/22 Ordered By: Nisha Ruff Referrals: Nisha Ruff MD [Physician] - 03/17/22 8:45 am (1 week post-op: 03/17 @8:45 6 week post-op: 04/21 @14:45) Patient Instructions: Cystoscopy, Hydrocodone/Acetaminophen (By mouth), Ibuprofen (By mouth), Laxative, Stool Softeners (By mouth), Salpingectomy (GEN), Laparoscopic Oophorectomy (GEN), Laparoscopic Hysterectomy (GEN), OB Abdominal Surgery - [facility], OB Discharge Report, OB Laproscopic Surgery - [facility], OB Food/Drug Interaction Guide, Opioid Safety Discharge Attestations Time Spent in Discharge Care*: less than 30 min Quality Metrics Clinical Quality Measures [ No reported AMI, CVA or VTE this stay] Coding Level of Care Code Acute Chg FW DC note Diagnoses Complex cyst of right ovary N83.291 Fibroid uterus D25.9
[2022-03-12 10:00] VITALS: BP 137/77; PULSE 63; RESP 16; TEMP 37.2; O2SAT 96
== END 2022-03-12 10:07 | disposition home or self-care (01) ==
LOC: OBGYN 11:25
PROVIDERS: Anesthesiology; Admitting Provider Obstetrics & Gynecology; PCP Family Medicine; Visit Provider Obstetrics & Gynecology
PROC: 0UT9FZZ Resection of Uterus, Via Natural or Artificial Opening With Percutaneous Endoscopic Assistance (ICD-10-PCS; CPT 58552; principal; 2022-03-11 09:20)
PROC: (CPT 58661; 2022-03-11 09:20)
PROC: 0TJB8ZZ Inspection of Bladder, Via Natural or Artificial Opening Endoscopic (ICD-10-PCS; CPT 52000; 2022-03-11 09:20)
DX: R93.89 Abnormal findings on diagnostic imaging of other specified body structures (principal); N83.291 Other ovarian cyst, right side; D25.9 Leiomyoma of uterus, unspecified
CPT/HCPCS: 58552; 36415; 80048; 81025; 84703; 85025; 85027; 86850; 86900; 87086; 88307; 96374; 96376; G0378; J0131; J0690; J1100; J1170; J1885; J1940; J2250; J2405; J2704; J2710; J3010; J3490; J7030; J7040; J7121

== ENCOUNTER → 2023-04-03 14:37 | Outpatient (BNVA) | payer OTHER, SELFPAY | PROVIDERS: PCP Family Medicine; Visit Provider Family Medicine | DX: Z13.6 Encounter for screening for cardiovascular disorders (principal) | CPT/HCPCS: 80053; 80061; 84443; 85025 ==

== ENCOUNTER 2024-02-18 08:39 | Outpatient (CLI) | payer OTHER, SELFPAY ==
--- NOTE | 2024-02-18 08:40 | MM_ITS ---
WS: [id number] BILATERAL SCREENING DIGITAL TOMOSYNTHESIS MAMMOGRAM WITH CAD HISTORY: SCREENING COMPARISON: 05/07/2020, 03/29/2020 Bilateral CC and MLO views with tomosynthesis and synthetic mammography submitted. Computer aided det ection analyzed. Breast composition: There are scattered areas of fibroglandular density. No suspicious masses, microc alcifications or architectural distortion. MM/MM scr BI tomosynthesis [id number] IMPRESSION: BI-RADS: 1 - Negative. FOLLOW UP: 1 Year Follow-up
== END 2024-02-18 08:40 | disposition home or self-care (01) ==
LOC: RAD 08:40
PROVIDERS: PCP Family Medicine; Visit Provider Family Medicine
DX: Z12.31 Encounter for screening mammogram for malignant neoplasm of breast (principal); R92.323 Mammographic fibroglandular density, bilateral breasts
CPT/HCPCS: 77063; 77067

== ENCOUNTER → 2024-10-07 11:26 | Outpatient (BNVA) | payer OTHER, SELFPAY | PROVIDERS: PCP Family Medicine; Visit Provider Family Medicine | DX: Z86.39 Personal history of other endocrine, nutritional and metabolic disease (principal); Z13.6 Encounter for screening for cardiovascular disorders | CPT/HCPCS: 80053; 80061; 85025; 86376 ==

== ENCOUNTER 2024-11-08 13:36 | Outpatient (CLI) | payer OTHER, SELFPAY ==
--- NOTE | 2024-11-08 13:43 | US_ITS ---
WS: [id number] DIAGNOSTIC BILATERAL DIGITAL BREAST TOMOSYNTHESIS MAMMOGRAPHY WITH CAD RIGHT breast ultrasound, limited. HISTORY: RIGHT breast pain. COMPARISON: 02/18/2024, 01/26/2021 TECHNIQUE: Bilateral craniocaudad, mediolateral oblique, and mediolateral views are submitted with tomosynthesis and SM. Spot compression RIGHT MLO and CC computer aided detection utilized. Breast composition: There are scattered areas of fibroglandular density. Marker is placed in the upper outer quadrant of the RIGHT breast at the area of pain. There is no underlying mass or interval change in the breast parenchyma. No distortion. No suspicious grouping of calcifications within either breast. No distortion or mass. RIGHT breast ultrasound, limited. Ultrasound performed in the RIGHT breast in the area of pain. Ultrasound performed at 9:00, 5 cm the nipple. There is no mass identified. No distortion. US/US breast RT limited* [id number] IMPRESSION: BI-RADS: 2 - Benign. FOLLOW UP: 1 Year Follow-up No ultrasound or mammographic abnormality in the area of pain.
--- NOTE | 2024-11-08 14:30 | MM_ITS ---
WS: [id number] DIAGNOSTIC BILATERAL DIGITAL BREAST TOMOSYNTHESIS MAMMOGRAPHY WITH CAD RIGHT breast ultrasound, limited. HISTORY: RIGHT breast pain. COMPARISON: 02/18/2024, 01/26/2021 TECHNIQUE: Bilateral craniocaudad, mediolateral oblique, and mediolateral views are submitted with tomosynthesis and SM. Spot compression RIGHT MLO and CC computer aided detection utilized. Breast composition: There are scattered areas of fibroglandular density. Marker is placed in the upper outer quadrant of the RIGHT breast at the area of pain. There is no underlying mass or interval change in the breast parenchyma. No distortion. No suspicious grouping of calcifications within either breast. No distortion or mass. RIGHT breast ultrasound, limited. Ultrasound performed in the RIGHT breast in the area of pain. Ultrasound performed at 9:00, 5 cm the nipple. There is no mass identified. No distortion. MM/MM diag BI tomosynthesis [id number] IMPRESSION: BI-RADS: 2 - Benign. FOLLOW UP: 1 Year Follow-up No ultrasound or mammographic abnormality in the area of pain.
== END 2024-11-08 13:37 | disposition home or self-care (01) ==
LOC: RAD 13:38
PROVIDERS: PCP Family Medicine; Visit Provider Family Medicine
DX: N64.4 Mastodynia (principal)
CPT/HCPCS: 76642; 77062; G0279